=== PATIENT | female | born 1990 | race Caucasian/White ===

== ENCOUNTER 2023-04-29 12:25 | Emergency (ER) | payer BC, SELFPAY ==
--- NOTE | 2023-04-29 12:33 | ED.URI ---
HPI - URI/Sore Throat General Chief Complaint: Upper Respiratory Infection Stated Complaint: Sore Throat,Body Aches,Headache Time Seen by Provider: 04/29/23 13:09 Source: patient and RN notes reviewed Mode of arrival: ambulatory Limitations: no limitations History of Present Illness HPI Narrative: 32-year-old female presents concern for 4-5 day history of sore throat, headache, body aches, chills, cough, nasal drainage. She reports she has been taking Tylenol. She reports she works at a daycare. MD elicited complaint: cough and sore throat Related Data Home Medications Medication Instructions Recorded Confirmed atenolol 100 mg tablet 100 mg DIRECTED 04/29/23 04/29/23 sertraline 100 mg tablet 100 mg DIRECTED 04/29/23 04/29/23 Allergies Allergy/AdvReac Type Severity Reaction Status Date / Time No Known Allergies Allergy Verified 04/29/23 12:42 Review of Systems Review of Systems: CONSTITUTIONAL: Reports malaise, chills EYES: Denies visual changes, redness, or discharge. ENT: Reports rhinorrhea, congestion, and sore throat. CARDIOVASCULAR: Denies chest pain, palpitations, or edema. RESPIRATORY: Reports cough. Denies dyspnea. GASTROINTESTINAL: Denies abdominal pain, nausea, vomiting, diarrhea SKIN: Denies rash or itching. MUSCULOSKELETAL: Reports myalgia. NEUROLOGIC: Reports headache. All systems reviewed & are unremarkable except as noted in HPI and below PMFSH Comments At time of signature, agree with nursing past medical, surgical, social and family history. There is no relevant family history pertinent to the presenting complaint Exam Narrative: GENERAL: Nontoxic-appearing and in no acute distress. HEAD: Normocephalic EYES: PERRLA, conjunctivae clear ENT: Nares clear. Mucous membranes moist. TM pearly dudley with dull light reflex bilaterally; no tragal tenderness. Oropharynx erythematous without lesions. Tonsils not enlarged and without exudate, no drooling, no hoarseness, no trismus, uvula midline. NECK: Supple. No lymphadenopathy CHEST: Clear to auscultation, breath sounds equal. No wheezing, rhonchi, rales, or stridor. No respiratory distress, speaks in full sentences. HEART: Regular rate and rhythm. No murmur heard. SKIN: Warm, dry, no rash. NEURO: Alert and oriented x3. PSYCH: Normal mood and affect Course Course Emergency Course: Patient is aware of diagnosis, understands and agrees to treatment plan. Anticipatory guidance given. Patient agrees to follow-up as directed and is aware of reasons to seek care at the emergency department. Portions of this record may have been created with voice recognition software Level of Care: Express Care Visit Vital Signs Vital signs: Reviewed. MDM - URI/Sore Throat MDM Narrative Medical decision making narrative: Differential diagnosis considered: Sampson virus, strep pharyngitis, allergic rhinitis, upper respiratory tract infection, sinusitis, rhinosinusitis, nasopharyngitis. viral pharyngitis, otitis media, otitis externa, pneumonia, bronchitis, viral cough syndrome, viral syndrome, and influenza. Exam findings show no acute concerns or changes; patient is non-toxic appearing and is in no distress. Patient is appropriate for outpatient treatment and follow-up. Lab Data Attestation: I reviewed the patient's lab results. Critical Care Time Critical Care Time Critical Care Time: No Discharge Plan Discharge Clinical Impression: Upper respiratory infection Patient Disposition: Home, Self-Care Condition: Stable Instructions: Upper Respiratory Infection (ED) Additional Instructions: Your rapid COVID and flu tests are negative Your rapid strep swab was negative today at [facility]. A throat culture will be sent to the laboratory for further testing. If the test is positive, you will receive a phone call within 48 hours and an appropriate antibiotic will be initiated at that time. Your symptoms are likely due to a viral illness
[2023-04-29 12:37] VITALS: BP 119/73; PULSE 62; RESP 16; TEMP 36.2; O2SAT 97
== END 2023-04-29 13:22 | disposition home or self-care (01) ==
PROVIDERS: Emergency Provider Nurse Practitioner
DX: J06.9 Acute upper respiratory infection, unspecified (principal); Z20.822 Contact with and (suspected) exposure to COVID-19; Z79.899 Other long term (current) drug therapy
CPT/HCPCS: 87081; 87426; 87804; 87880; 99213; C9803; G0463

== ENCOUNTER 2023-08-03 16:45 | Emergency (ER) | payer BC, SELFPAY ==
[2023-08-03] VITALS (9 sets, daily range): BP systolic 103–144; BP diastolic 61–96; PULSE 62–86; RESP 13–26; TEMP 36.4; O2SAT 97–100
--- NOTE | ~2023-08-03 | CT_ITS ---
EXAMINATION: CTA chest PE protocol DATE: 08/03/2023 17:40 INDICATION: Right-sided chest pain TECHNIQUE: Computed tomography (CT) pulmonary angiogram of the chest was performed with 100 mL Omnipa que-350 intravenous contrast. Additional 3D reconstructions utilizing coronal maximum intensity proje ction (MIP) were performed. Automated exposure control and iterative reconstruction technique were em ployed. The dose-length product was 691.87 mGy-cm. COMPARISON: None FINDINGS: No pulmonary embolism. Mild dependent atelectasis in the right lower lobe. Small region of cystic rosie g disease in the superior segment of the right upper lobe. Small region of groundglass opacity lingul a most likely atelectasis although focus of pneumonia is not excludable. No pulmonary edema, pleural effusion or pneumothorax. Cardiomegaly with prominent right atrial enlargement. No pericardial effusi on. Pectus excavatum which exerts mass effect upon the anterior wall of the right atrium. There is be en prior median sternotomy. Surgical clips at the AP window in the expected region of the ductus abimbola riosum. Thoracic aorta is normal in caliber with no dissection. No pathologically enlarged thoracic l ymphadenopathy. Visualized upper abdomen is unremarkable. IMPRESSION: 1. No pulmonary embolism. 2. Small region of groundglass opacity in the lingula most likely atelectasis although differential i ncludes pneumonia. 3. Cardiomegaly with right atrial enlargement. Reviewed, dictated and finalized at location A. HOUSE SHIPPING CLERK IMPRESSION: 1. No pulmonary embolism. 2. Small region of groundglass opacity in the lingula most likely atelectasis a lthough differential includes pneumonia. 3. Cardiomegaly with right atrial enlargement.
--- NOTE | 2023-08-03 16:52 | ECG_ITS ---
Measurements Intervals [place] Rate: 66 P: 21 [place]: 214 QRS: 24 QRSD: 96 T: 13 QT: 395 QTc: 416 Interpretive Statements SINUS RHYTHM WITH FIRST DEGREE AV BLOCK POSSIBLE LEFT ATRIAL ENLARGEMENT CONSIDER ANTERIOR INFARCT, AGE INDETERMINATE CONSIDER INFERIOR INFARCT, AGE INDETERMINATE BASELINE ARTIFACT- I, II, III, AVR, AVL ABNORMAL ECG NO PREVIOUS ECG AVAILABLE FOR COMPARISON Electronically Signed On 08-03-2023 17:03:53 BOOK CRITIC by Vishal Glover D.O.
--- NOTE | 2023-08-03 16:53 | ED.GENADULT ---
HPI - General Adult General Chief complaint: Chest Pain <Terese Diamond November, Last Filed: 08/05/23 21:00> Stated complaint: R sided cp <Terese Diamond November, Filed: 08/05/23 21:00> Time Seen by Provider: 08/03/23 20:48 <Terese Diamond November, Last Filed: 08/05/23 21:00> History of Present Illness HPI narrative: Soumya Olea is a 33 y/o female with PMHx of Loeys-elisabeth, Valve sparing aortic replacement 6 years ago, has a director global medical affairs Dr. Stewart at [facility], who was sent to the ED to have a CT of her chest. She states she has had intermittent right sided chest pain that started 5 days ago, she reports the chest pain became constant 2 days ago. Rates chest pain at a 7/10. Denies SOB. Reports productive cough of yellow sputum since Case. 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 Stewart at [facility], who was sent to the ED to have a CT of her chest. She states she has had intermittent localized right sided chest pain that started 5 days ago, she reports the chest pain became constant 2 days ago. She initially noticed it while rolling over in bed, then it was only occuring when she coughed, but now is constant. Rates chest pain at a 5 or 6, 7 or 8/10 with coughing. Denies SOB. Reports productive cough of yellow sputum since Case. No recent fever/chills/no hx of DVT . Her has been sick with cold symptoms. No palliating/provoking factors. Pain is sharp, like a knife. Non radiating. Has not been using Tylenol or ibuprofen. Recently on antibiotics for a sinus infection; had pink eye at the same time. She currently has a sore throat. Denies urinary frequency/urgency, hematuria, or dysuria. <Sanjuanita Oconnor MD - Last Filed: 08/03/23 22:48> Related Data Home medications: Home Medications Medication Instructions Recorded Confirmed atenolol 100 mg tablet 100 mg DIRECTED 04/29/23 04/29/23 sertraline 100 mg tablet 100 mg DIRECTED 04/29/23 04/29/23 <Terese Diamond November, IT ARCHITECTURE CONSULTANT - Last Filed: 08/05/23 21:00> Allergies/adverse reactions: Allergies Allergy/AdvReac Type Severity Reaction Status Date / Time No Known Allergies Allergy Verified 04/29/23 12:42 <Terese Diamond November,N - Last Filed: 08/05/23 21:00> Review of Systems Review of Systems: All systems reviewed & are unremarkable except as noted in HPI and below <Terese Diamond November, IT ARCHITECTURE CONSULTANT - Last Filed: 08/05/23 21:00> PMFSH Past Medical History Medical History: Medical History (Updated 08/04/23 @ 00:06 by Raysa Olvera) 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 <Terese Diamond November, IT ARCHITECTURE CONSULTANT - Last Filed: 08/05/23 21:00> Surgical History Surgical History: Surgical History (Updated 08/03/23 @ 22:40 by Sanjuanita Oconnor MD) H/O aortic valve repair valve sparing replacement 2019 <Terese Diamond November, IT ARCHITECTURE CONSULTANT - Last Filed: 08/05/23 21:00> Social History Social History: Social History (Updated 08/03/23 @ 22:45 by Sanjuanita Oconnor MD) Living arrangements: with family Additional living arrangements comments: <Terese Diamond November, IT ARCHITECTURE CONSULTANT - Last Filed: 08/05/23 21:00> Exam Narrative: GENERAL: Well-appearing, well-nourished, and in no acute distress. HEAD: Normocephalic, atraumatic. EYES: Non injected, non icteric ENT: Nares clear, no rhinorrhea or epistaxis. Mild posterior oropharyngeal erythema. No tonsilar swelling or exudate. Uvula midline. NECK: Supple. Normal range of motion. RESP: Clear to auscultation. No respiratory distress. HEART/CHEST: Regular rate and rhythm. Well-healed mildline scar. ABDOMEN: Soft, nondistended. EXTREMITIES: Normal range of motion. No edema. SKIN: Warm, dry, no rash. NEURO: No focal deficits. Alert and oriented x3.
[2023-08-03 17:15] LABS: Basophils Absolute Auto 0.1 K/mm3 (0.0-0.1); Basophils Percent Auto 0.5 % (0.2-1.2); Eosinophils Absolute Auto 0.2 K/mm3 (0-0.3); Eosinophils Percent Auto 1.9 % (0-4.4); Hematocrit 41.2 % (37.0-47.0); Hemoglobin 12.7 g/dL (12.0-15.0); Immature Granulocyte Absolute 0.05 K/mm3 (0.00-0.031); Immature Granulocyte Percent A 0.5 % (0-0.5); Lymphocytes Absolute Auto 2.81 K/mm3 (0.9-3.2); Lymphocytes Percent Auto 26.2 % (18.3-44.2); Mean Corpuscular HGB Conc 30.8 g/dl (32-36); Mean Corpuscular Hemoglobin 28.2 pg (26-34); Mean Corpuscular Volume 91.6 fl (80-100); Mean Platelet Volume 10.7 fl (7.4-10.4); Monocytes Absolute Auto 1.1 K/mm3 (0.1-0.6); Monocytes Percent Auto 10.3 % (2.6-8.5); Neutrophils Absolute Auto 6.5 K/mm3 (1.3-6.7); Neutrophils Percent Auto 60.6 % (45.5-73.1); Platelet Count Result 252 k/mm3 (150-375); Red Cell Distribution Width 14.3 % (11.5-14.5); White Blood Count 10.7 K/mm3 (4.5-10.0)
[2023-08-03 17:25] LABS: Alanine Aminotransferase 16 U/L (6-35); Albumin Level 4.1 g/dL (3.5-5.1); Alkaline Phosphatase 100 U/L (38-126); Anion Gap 9 mmol/L (8-16); Aspartate Amino Transferase 23 U/L (14-36); Bilirubin,Total 0.3 mg/dL (0.2-1.3); Blood Urea Nitrogen 12 mg/dL (7-17); Calcium 8.8 mg/dL (8.4-10.2); Carbon Dioxide 27 mmol/L (22-30); Chloride 101 mmol/L (98-107); Estimated CRCL calculation 122 ml/min; Estimated Glomerular Filt Rate > 60; Glucose 88 mg/dL (65-110); Potassium 3.9 mmol/L (3.4-5.0); Sodium 137 mmol/L (137-145)
[2023-08-03 17:29] LABS: Appearance Urine Cloudy (Clear); Bacteria Urine None Seen /hpf; Bilirubin Urine Negative (Negative); Blood Urine 3+ (Negative); Color Urine Yellow (Yellow); Glucose Urine UA Negative (Negative); Ketones Urine Negative (Negative); Leukocyte Esterase Ur Negative LEU/UL (Negative); Nitrate Urine Negative (Negative); Non Pathogenic Casts 0-2; Protein Urine Negative (Negative); Specific Grav Ur 1.003 (1.001-1.035); Squamous Epithelial Cell Urine None seen /hpf (Few); Urobilinogen Urine 0.2 mg/dL (<2.0); WBC Urine 0-5 /hpf
[2023-08-03 17:32] LABS: Partial Thromboplastin Time 29.8 SECONDS (22.3-36.8)
[2023-08-03 17:37] LABS: Troponin I < 0.012 ng/mL (0.000-0.034)
[2023-08-03 17:38] LABS: NT Pro B Type Natriuretic Pept 346 pg/mL (19.9-100)
[2023-08-03 17:48] LABS: INR 1.1; Prothrombin Time 14.2 Seconds (11.1-14.7)
[2023-08-03 17:50] LABS: Add Urine Microscopic? YES
--- NOTE | 2023-08-03 20:16 | ECG_ITS ---
Measurements Intervals [place] Rate: 62 P: 35 SD: 197 QRS: 37 QRSD: 94 T: 14 QT: 425 QTc: 434 Interpretive Statements SINUS RHYTHM LEFT ATRIAL ENLARGEMENT INCOMPLETE RIGHT BUNDLE BRANCH BLOCK BORDERLINE ST-T WAVE ABNORMALITY- ANT/INF LEADS BORDERLINE ECG COMPARED TO ECG 08/03/2023 16:57:01 NO SIGNIFICANT CHANGES Electronically Signed On 08-04-2023 11:42:49 EMBROIDERY MACHINE OPERATOR by Vishal Glover D.O.
[2023-08-03 21:03] LABS: Troponin I < 0.012 ng/mL (0.000-0.034)
[2023-08-03 21:34] LABS: Strep Group A RT-PCR NOT DETECTED (Negative)
[2023-08-03] MEDS: DEXAMETHASONE 2 MG TABLET 10 MG PO (21:36)
[2023-08-03] MEDS: guaiFENesin/DEXTROMETHORPHAN 10 ML UDC PO (21:36)
[2023-08-03 21:48] LABS: Influenza A QL RT-PCR Negative (Negative); Influenza B QL RT-PCR Negative (Negative); RSV RNA, RT-PCR Negative (Negative); SARS-CoV-2 RNA PCR Negative (Negative)
== END 2023-08-03 22:15 | disposition home or self-care (01) ==
PROVIDERS: Nurse Practitioner Family; Emergency Provider Student in an Organized Health Care Education/Training Program
DX: B34.9 Viral infection, unspecified (principal); R07.89 Other chest pain; Z20.822 Contact with and (suspected) exposure to COVID-19; Q87.89 Other specified congenital malformation syndromes, not elsewhere classified; Z95.2 Presence of prosthetic heart valve; I51.7 Cardiomegaly; R91.8 Other nonspecific abnormal finding of lung field; R94.31 Abnormal electrocardiogram [ECG] [EKG]; I44.0 Atrioventricular block, first degree; I45.10 Unspecified right bundle-branch block
CPT/HCPCS: 36415; 71275; 80053; 81001; 81025; 83880; 84484; 85025; 85610; 85730; 87637; 87651; 93005; 99284; A9270; J8540; Q9967